=== PATIENT | male | born 1960 | race Two or more races ===

== ENCOUNTER 2017-06-21 07:15 | Outpatient (CLI) | payer OTHER | END 2017-06-21 08:00 | disposition home or self-care (01) | LOC: NUCLEAR 07:15 | DX: J45.30 Mild persistent asthma, uncomplicated (principal); R91.1 Solitary pulmonary nodule; Z87.891 Personal history of nicotine dependence; E66.01 Morbid (severe) obesity due to excess calories | CPT/HCPCS: 78815; A9552 ==